=== PATIENT | female | born 1990 | race Asian ===

== ENCOUNTER 2020-03-01 10:51 | Emergency (ER) | payer BC ==
[~2020-03-01] VITALS: Ht 154.9 cm; Wt 68.9 kg
[2020-03-01 10:58] VITALS: BP 115/72
--- NOTE | 2020-03-01 11:16 | NUR ---
Patient discharged to home in stable condition. Written and verbal after care instructions given. Patient verbalizes understanding of instruction.
--- NOTE | 2020-03-01 11:16 | NUR ---
COVID SPECIMEN COLLECTED AND SENT TO LAB.
== END 2020-03-01 11:17 | disposition home or self-care (01) ==
LOC: ER 10:54
DX: R05 Cough (principal); J02.9 Acute pharyngitis, unspecified; Z20.822 Contact with and (suspected) exposure to COVID-19
CPT/HCPCS: 99283; C9803; U0003

== ENCOUNTER 2021-04-14 09:49 | Emergency (ER) | payer BC, OTHER ==
[~2021-04-14] VITALS: Ht 154.9 cm; Wt 70.3 kg
--- NOTE | 2021-04-14 10:49 | NUR ---
COVID PCR AND ANTIGEN SWAB DONE AND SENT TO LAB
[2021-04-14] MEDS ORDERED: IBUP-1955 PO (12:17)
--- NOTE | 2021-04-14 12:21 | NUR ---
COVID (+) REPORT RECIEVED FROM LAB.
[2021-04-14 12:29] VITALS: BP 118/82
--- NOTE | 2021-04-14 12:29 | NUR ---
Patient discharged to home in stable condition. Written and verbal after care instructions given. Patient verbalizes understanding of instruction.
--- NOTE | 2021-04-15 10:23 | NUR ---
MADE A PHONE CALL AND INFORMED HER THAT HER PCR COVID TEST IS POSITIVE REPORTED BY THE LAB. EDUCATION PROVIDED. THE PATIENT VERBALIZED UNDERSTANDING.
== END 2021-04-14 12:29 | disposition home or self-care (01) ==
LOC: ER 09:53
DX: S46.912A Strain of unspecified muscle, fascia and tendon at shoulder and upper arm level, left arm, initial encounter (principal); X58.XXXA Exposure to other specified factors, initial encounter; Y92.89 Other specified places as the place of occurrence of the external cause; U07.1 COVID-19
CPT/HCPCS: 73030; 87426; 99284; C9803; U0003

== ENCOUNTER 2021-11-18 09:37 | Outpatient (CLI) | payer BC, OTHER ==
[~2021-11-18 09:37] MED LIST: IBUP-1955 PO
== END 2021-11-18 23:59 | disposition home or self-care (01) ==
LOC: RAD 09:37
PROVIDERS: ATTEND Family Medicine
DX: M79.672 Pain in left foot (principal); M79.642 Pain in left hand
CPT/HCPCS: 73130-TC; 73630-TC